=== PATIENT | male | born 1990 | race Hispanic/Latino ===

== ENCOUNTER 2018-02-01 07:11 | Inpatient (IN) | payer OTHER ==
[2018-02-01 07:19] VITALS: BMI 23.0
[2018-02-01] MEDS ORDERED: Oxycodone/Acetaminophen 5/325 mg Tab PO STA (07:53)
--- NOTE | 2018-02-01 08:18 | ED PDOC ---
Upper Extremity Pain/Injury Time Seen by Provider: 02/01/18 07:30 Chief Complaint (Nursing): Upper Extremity Problem/Injury Chief Complaint (Provider): Upper Extremity Problem/Injury History Per: Patient History/Exam Limitations: no limitations Onset/Duration Of Symptoms: Hrs (today morning) Current Symptoms Are (Timing): Still Present Additional Complaint(s): Jerson Aly Jr is a 28 year old male with no past medical history who presents to the emergency department complaining of having left shoulder pain since waking up this morning. Patient states he has not sustained any trauma or exertion and that he went to bed normally. He took an Alleve this morning with minimal relief and he denies any numbness or weakness. PMD: No provider Past Medical History Reviewed: Historical Data, Nursing Documentation, Vital Signs Vital Signs: Last Vital Signs Temp 98.1 F 02/01/18 07:29 Pulse 86 02/01/18 07:19 Resp 20 02/01/18 07:19 BP 121/84 02/01/18 07:19 Pulse Ox 100 02/01/18 07:19 - Medical History PMH: No Chronic Diseases Denies: Chronic Kidney Disease - Surgical History Surgical History: No Surg Hx - Family History Family History: States: Unknown Family Hx - Home Medications Home Medications: Ambulatory Orders Medication Instructions Recorded No Known Home Med 02/01/18 - Allergies Allergies/Adverse Reactions: Allergies Allergy/AdvReac Type Severity Reaction Status Date / Time No Known Allergies Allergy Verified 02/01/18 07:30 Review of Systems ROS Statement: Except As Marked, All Systems Reviewed And Found Negative Musculoskeletal: Positive for: Shoulder Pain (left shoulder) Neurological: Negative for: Weakness, Numbness Physical Exam - Reviewed Nursing Documentation Reviewed: Yes - Physical Exam Appears: Positive for: Non-toxic, In Acute Distress (moderate painful distress) Head Exam: Positive for: ATRAUMATIC, NORMOCEPHALIC Cardiovascular/Chest: Positive for: Regular Rate, Rhythm. Negative for: Murmur Respiratory: Positive for: Normal Breath Sounds. Negative for: Respiratory Distress Pulses-Radial (L): 2+ Pulses-Radial (R): 2+ Extremity: Positive for: Deformity (minimal deformity of the upper superior portion of the left shoulder; (-) elbow deformity), Other (Decreased ROM at shoulder and elbow secondary to pain) Neurologic/Psych: Positive for: Alert, Oriented (x3) - Laboratory Results Result Diagrams: 02/01/18 12:00 02/01/18 12:00 - ECG O2 Sat by Pulse Oximetry: 100 (RA) Pulse Ox Interpretation: Normal Medical Decision Making Medical Decision Making: Time: 07:51 Impression: Non traumatic shoulder and elbow pain Plan: --Toradol 15 mg IVP --Tylenol 1 tab PO --Elbow x-ray --Shoulder x-ray --Shoulder CT --Arm sling 09:39 Left shoulder X-ray FINDINGS: BONES: Cortical irregularities are appreciated at the inferior glenohumeral joint regions suspicious for fractures. No dislocation however. Acromioclavicular and glenohumeral joints are otherwise normal as well as local soft tissues. OTHER FINDINGS: None. IMPRESSION: Small chip or avulsion fractures are suspected inferior to the glenohumeral joint. No dislocation. Follow-up CT left shoulder or MRI may be utilized for added characterization. 09:41 Left elbow X-ray FINDINGS: BONES: No acute fracture or destructive bony lesion identified. JOINTS: Normal. No osteoarthritis. SOFT TISSUES: Normal. JOINT EFFUSION: None. OTHER FINDINGS: None IMPRESSION: Unremarkable radiographs of the left elbow. 10:[address] FINDINGS: There is a comminuted fracture of the left humeral head involving at least 4 components. There is marked impaction at the medial proximal metaphysis the left humerus with remainder of the left humeral head fracture nondisplaced. The labrum appears intact throughout. No subluxation or dislocation including the acromioclavicular joint which is unremarkable appearing. Hemarthrosis identified moderately. IMPRESSION: Comminuted left humeral head fracture with medial proximal metaphyseal impaction and otherwise no additional significant displacement appreciated. No dislocation. Acromioclavicular joint normal. Glenoid process intact including labrum. 11:[address] Ryder, admit for OR. Scribe Attestation: Documented by Lico Aleman, acting as a scribe for Kimberly Guardado MD. Provider Scribe Attestation: All medical record entries made by the Scribe were at my direction and personally dictated by me. I have reviewed the chart and agree that the record accurately reflects my personal performance of the history, physical exam, medical decision making, and the department course for this patient. I have also personally directed, reviewed, and agree with the discharge instructions and disposition. Disposition - Clinical Impression Clinical Impression: Comminuted left humeral fracture - Patient ED Disposition Is Patient to be Admitted: Yes - Disposition Disposition Time: 11:42 Condition: STABLE - Pt Status Changed To: Hospital Disposition Of: Inpatient - Admit Certification Admit to Inpatient:: After my assessment, the patient will require hospitalization for at least two midnights. This is because of the severity of symptoms shown, intensity of services needed, and/or the medical risk in this patient being treated as an outpatient. - POA Present On Arrival: None
[2018-02-01] MEDS ORDERED: diaZEpam 10 mg/2 ml Inj IVP STA (08:40)
--- NOTE | 2018-02-01 09:43 | RAD ---
Date of service: 02/01/2018 PROCEDURE: Radiographs of the Left Shoulder HISTORY: Pain COMPARISON: No prior. FINDINGS: BONES: Cortical irregularities are appreciated at the inferior glenohumeral joint regions suspicious for fractures. No dislocation however. Acromioclavicular and glenohumeral joints are otherwise normal as well as local soft tissues. OTHER FINDINGS: None. IMPRESSION: Small chip or avulsion fractures are suspected inferior to the glenohumeral joint. No dislocation. Follow-up CT left shoulder or MRI may be utilized for added characterization.
--- NOTE | 2018-02-01 09:44 | RAD ---
Date of service: 02/01/2018 PROCEDURE: Radiographs of the left elbow. HISTORY: Pain COMPARISON: No prior. FINDINGS: BONES: No acute fracture or destructive bony lesion identified. JOINTS: Normal. No osteoarthritis. SOFT TISSUES: Normal. JOINT EFFUSION: None. OTHER FINDINGS: None IMPRESSION: Unremarkable radiographs of the left elbow.
--- NOTE | 2018-02-01 10:38 | CT ---
Date of service: 02/01/2018 PROCEDURE: LEFT SHOULDER CT WITHOUT CONTRAST HISTORY: Abnormal XR L shoulder COMPARISON: Left shoulder radiographs 02/01/2018. TECHNIQUE: A volumetric CT acquisition through the left shoulder has been performed without intravenous contrast. Reformatted datasets provided multiple projections. Radiation dose:Total exam DLP = 455.15 mGy-cm. This CT exam was performed using one or more of the following dose reduction techniques: Automated exposure control, adjustment of the mA and/or kV according to patient size, and/or use of iterative reconstruction technique. FINDINGS: There is a comminuted fracture of the left humeral head involving at least 4 components. There is marked impaction at the medial proximal metaphysis the left humerus with remainder of the left humeral head fracture nondisplaced. The labrum appears intact throughout. No subluxation or dislocation including the acromioclavicular joint which is unremarkable appearing. Hemarthrosis identified moderately. IMPRESSION: Comminuted left humeral head fracture with medial proximal metaphyseal impaction and otherwise no additional significant displacement appreciated. No dislocation. Acromioclavicular joint normal. Glenoid process intact including labrum..
[2018-02-01] MEDS ORDERED: Morphine 4 MG/ML VIAL IV ONE (11:30)
[2018-02-01 12:14] LABS: BASO % 0.2 % (0.0-2.0); HEMOGLOBIN 14.4 g/dL (12.0-18.0); LYMPH # 0.8 K/uL (1.0-4.3); LYMPH % 5.3 % (20.0-40.0); MEAN CELL VOLUME 89.7 fl (80.0-94.0); MEAN CORPUSCULAR HEMOGLOBIN 29.9 pg (27.0-31.0); MEAN CORPUSCULAR HGB CONC 33.4 g/dL (33.0-37.0); MEAN PLATELET VOLUME 7.8 fl (7.2-11.7); MONO # 0.9 K/uL (0.0-0.8); MONO % 6.3 % (0.0-10.0); NEUT # 13.1 K/uL (1.8-7.0); NEUT % 88.2 % (50.0-75.0); PLATELET COUNT 273 K/uL (130-400); RBC 4.82 Mil/uL (4.40-5.90); RED CELL DISTRIBUTION WIDTH 12.1 % (11.5-14.5); WHITE BLOOD COUNT 14.8 K/uL (4.8-10.8)
[2018-02-01 12:17] LABS: PROTHROMBIN TIME 10.9 Seconds (9.8-13.1)
[2018-02-01 12:19] LABS: PARTIAL THROMBOPLASTIN TIME 30.3 Seconds (25.6-37.1)
--- NOTE | 2018-02-01 12:22 | RAD ---
Date of service: 02/01/2018 PROCEDURE: CHEST RADIOGRAPH, 1 VIEW HISTORY: Pre-op COMPARISON: None available. FINDINGS: LUNGS: Clear. PLEURA: No pneumothorax or pleural fluid seen. CARDIOVASCULAR: No aortic atherosclerotic calcification present. Normal. OSSEOUS STRUCTURES: No significant abnormalities. VISUALIZED UPPER ABDOMEN: Normal. OTHER FINDINGS: None. IMPRESSION: No active disease.
[2018-02-01 12:25] LABS: ALB/GLOB RATIO 1.7 (1.0-2.1); ALBUMIN 4.4 g/dL (3.5-5.0); ALT/SGPT 36 U/L (21-72); AST/SGOT 83 U/L (17-59); BLOOD UREA NITROGEN 13 mg/dl (9-20); CALCIUM 9.3 mg/dL (8.4-10.2); GFR NON-AFRICAN AMERICAN > 60
[2018-02-01 13:20] LABS: BANDS 2 % (0-2); LYMPHOCYTE 6 % (20-50); MONOCYTE 4 % (0-10); NEUTROPHIL 88 % (42-75); PLATELET ESTIMATE NORMAL (NORMAL); TOTAL CELLS COUNTED 100
--- NOTE | 2018-02-01 16:18 | CARD ---
APPROVED REPORT Date of service: 02/01/2018 EKG Measurement Heart [id number] <Conclusion> Normal sinus rhythm Normal ECG
[2018-02-01] MEDS: Oxycodone/Acetaminophen 5/325 mg Tab PO PRN ×2 (16:29→21:55)
--- NOTE | 2018-02-01 17:18 | CP.PCM.HP ---
History of Present Illness - History of Present Illness History of Present Illness: 28 YR OLD MALE ADMITTED WITH SUDDEN ONSET OF NON-TRAUMATIC L SHOULDER PAIN TODAY.HE WAS NOTED TO HAVE L HUMERAL HEAD FRACTURE ON XRAY AND CT SCAN. UNREMARKABLE PAST MEDICAL HISTORY FAMILY HX IS NON-CONTRIBUTARY Present on Admission - Present on Admission Any Indicators Present on Admission: No Past Patient History - Past Medical History & Family History Past Medical History?: No - Past Social History Smoking Status: Former Smoker - CARDIAC Hx Cardiac Disorders: No - PULMONARY Hx Respiratory Disorders: No - NEUROLOGICAL Hx Neurological Disorder: No - HEENT Hx HEENT Problems: No - RENAL Hx Chronic Kidney Disease: No - ENDOCRINE/METABOLIC Hx Endocrine Disorders: No - HEMATOLOGICAL/ONCOLOGICAL Hx Blood Disorders: No - INTEGUMENTARY Hx Dermatological Problems: No - MUSCULOSKELETAL/RHEUMATOLOGICAL Hx Falls: No - GASTROINTESTINAL Hx Gastrointestinal Disorders: No - GENITOURINARY/GYNECOLOGICAL Hx Genitourinary Disorders: No - PSYCHIATRIC Hx Psychophysiologic Disorder: No Hx Substance Use: No - SURGICAL HISTORY Hx Surgeries: Yes Other/Comment: Maxilo Facial Surgery - ANESTHESIA Hx Anesthesia: Yes Hx Anesthesia Reactions: No Hx Malignant Hyperthermia: No Meds Allergies/Adverse Reactions: Allergies Allergy/AdvReac Type Severity Reaction Status Date / Time No Known Allergies Allergy Verified 02/01/18 07:30 Physical Exam - Constitutional Appears: In Acute Distress - Head Exam Head Exam: ATRAUMATIC, NORMAL INSPECTION, NORMOCEPHALIC - Eye Exam Eye Exam: EOMI, Normal appearance, PERRL Pupil Exam: NORMAL ACCOMODATION, PERRL - ENT Exam ENT Exam: Mucous Membranes Moist, Normal Exam - Neck Exam Neck exam: Positive for: Normal Inspection - Respiratory Exam Respiratory Exam: Clear to Auscultation Bilateral, NORMAL BREATHING PATTERN - Cardiovascular Exam Cardiovascular Exam: REGULAR RHYTHM - GI/Abdominal Exam GI & Abdominal Exam: Normal Bowel Sounds, Soft. absent: Tenderness - Rectal Exam Rectal Exam: NORMAL INSPECTION - Extremities Exam Extremities exam: Positive for: normal inspection, tenderness Additional comments: L ARM IN A SPLINT - Back Exam Back exam: NORMAL INSPECTION - Neurological Exam Neurological exam: Alert, CN II-XII Intact, Normal Gait, Oriented x3, Reflexes Normal - Psychiatric Exam Psychiatric exam: Normal Affect, Normal Mood - Skin Skin Exam: Dry, Intact, Normal Color, Warm Results - Vital Signs Recent Vital Signs: Last Vital Signs Temp 98.4 F 02/01/18 16:12 Pulse 93 H 02/01/18 16:12 Resp 20 02/01/18 16:12 BP 136/76 02/01/18 16:12 Pulse Ox 98 02/01/18 16:12 - Labs Result Diagrams: 02/01/18 12:00 02/01/18 12:00 Labs: Laboratory Results - last 24 hr 02/01/18 02/01/18 02/01/18 12:00 12:00 12:00 WBC 14.8 H RBC 4.82 Hgb 14.4 Hct 43.2 MCV 89.7 MCH 29.9 MCHC 33.4 RDW 12.1 Plt Count 273 MPV 7.8 Neut % (Auto) 88.2 H Lymph % (Auto) 5.3 L Centre % (Auto) 6.3 Eos % (Auto) 0.0 Baso % (Auto) 0.2 Neut # (Auto) 13.1 H Lymph # (Auto) 0.8 L Centre # (Auto) 0.9 H Eos # (Auto) 0.0 Baso # (Auto) 0.0 Neutrophils % (Manual) 88 H Band Neutrophils % 2 Lymphocytes % (Manual) 6 L Monocytes % (Manual) 4 Platelet Estimate Normal RBC Morphology Normal PT 10.9 INR 1.0 APTT 30.3 Sodium 138 Potassium 3.6 Chloride 103 Carbon Dioxide 24 Anion Gap 15 BUN 13 Creatinine 0.9 Est GFR ( Amer) > 60 Est GFR (Non-Af Amer) > 60 Random Glucose 115 H Calcium 9.3 Total Bilirubin 1.1 AST 83 H ALT 36 Alkaline Phosphatase 54 Total Protein 6.9 Albumin 4.4 Globulin 2.5 Albumin/Globulin Ratio 1.7 Blood Type Blood Type Confirm Antibody Screen BBK History Checked 02/01/18 02/01/18 12:00 12:28 WBC RBC Hgb Hct MCV MCH MCHC RDW Plt Count MPV Neut % (Auto) Lymph % (Auto) Centre % (Auto) Eos % (Auto) Baso % (Auto) Neut # (Auto) Lymph # (Auto) Centre # (Auto) Eos # (Auto) Baso # (Auto) Neutrophils % (Manual) Band Neutrophils % Lymphocytes % (Manual) Monocytes % (Manual) Platelet Estimate RBC Morphology PT INR APTT Sodium Potassium Chloride Carbon Dioxide Anion Gap BUN Creatinine Est GFR ( Amer) Est GFR (Non-Af Amer) Random Glucose Calcium Total Bilirubin AST ALT Alkaline Phosphatase Total Protein Albumin Globulin Albumin/Globulin Ratio Blood Type A POSITIVE Blood Type Confirm A POSITIVE Antibody Screen Negative BBK History Checked No verified bt Assessment & Plan - Assessment and Plan (Free Text) Assessment: PATHOLOGIC L HUMERAL FRACTURE Plan: MEDICALLY CLEARED FOR SURGERY IN AM - Date & Time Date: 02/01/18 Time: 17:20
--- NOTE | 2018-02-02 00:09 | CON ---
DATE: 02/01/2018 CHIEF COMPLAINT: Left shoulder fracture dislocation. HISTORY OF PRESENT ILLNESS: The patient is a 28-year-old male who is right-hand dominant, presents to the emergency room with excruciating left shoulder pain. The patient reports that he woke up with the pain. Denies any trauma or fall. The patient reports the day prior to the incident he had full range of motion of his left shoulder. Currently, the patient's symptoms include very limited and painful left shoulder motion. He denies any paresthesias or motor weakness. Denies any pain in any extremity or joint. Neurovascularly, no other symptoms. Not in any acute distress. PAST MEDICAL HISTORY: None. ALLERGIES: NO KNOWN DRUG ALLERGIES. PHYSICAL EXAMINATION: EXTREMITIES: Examination of the patient's left shoulder reveals swelling and minimal ecchymosis. Limited range of motion in all planes secondary to pain. Medial, ulnar, radial, and axillary nerves intact distally. 2+ radial pulses. IMAGING: CT scan and x-ray of the patient's left shoulder are showing a posterior fracture dislocation of femoral head with lesser tuberosity displacement. ASSESSMENT: A 28-year-old male with an acute left shoulder fracture, posterior fracture dislocation. TREATMENT: I had a detailed discussion with the patient reviewing the history, physical exam, and imaging findings. I presented with different treatment options. At this time I have recommended with the close versus open reduction and fracture fixation and all indicated procedures. The patient fully understands the risks and benefits. The patient will be taken to the operating room for acute fracture fixation. Marbin Ryder MD
[2018-02-02 07:51] VITALS: BP 132/80; PULSE 71; RESP 16; TEMP 98.3
[2018-02-02] MEDS ORDERED: Dextrose 5%/0.45% NS 1,000 ML IV SCH (09:15)
--- NOTE | 2018-02-02 09:24 | CP.PCM.PN ---
Subjective - Date & Time of Evaluation Date of Evaluation: 02/02/18 Time of Evaluation: 09:29 - Subjective Subjective: c/o pain in l shoulder has received iv dilaudid several times in the past 24 hrs mother at bedside and is considering other ortho options depending on mri results pt is tentatively scheduled for ortho surgery this afternoon Objective - Vital Signs/Intake and Output Vital Signs (last 24 hours): Temp Pulse Resp BP Pulse Ox 98.3 F 71 16 132/80 97 02/02/18 07:50 02/02/18 07:50 02/02/18 07:50 02/02/18 07:50 02/02/18 07:50 - Medications Medications: Current Medications Hydromorphone HCl (Dilaudid) 2 mg IVP Q4 PRN PRN Reason: Pain, moderate (4-7) Last Admin: 02/02/18 06:23 Dose: 2 mg Dextrose/Sodium Chloride (Dextrose 5%/0.45% Ns 1000 Ml) 1,000 mls @ 80 mls/hr IV .[id number] Stop: 02/03/18 09:03 Last Admin: 02/02/18 09:19 Dose: 80 mls/hr Ondansetron HCl (Zofran Inj) 4 mg IVP Q4 PRN PRN Reason: Nausea/Vomiting Last Admin: 02/01/18 21:08 Dose: 4 mg Oxycodone/Acetaminophen (Percocet 5/325 Mg Tab) 1 tab PO Q4 PRN PRN Reason: Pain, Mild (1-3) Stop: 02/04/18 13:31 Last Admin: 02/01/18 21:55 Dose: 1 tab - Labs Labs: 02/01/18 12:00 02/01/18 12:00 PT 10.9 Seconds (9.8-13.1) 02/01/18 12:00 INR 1.0 02/01/18 12:00 APTT 30.3 Seconds (25.6-37.1) 02/01/18 12:00 - Constitutional Appears: In Acute Distress - Head Exam Head Exam: ATRAUMATIC, NORMAL INSPECTION, NORMOCEPHALIC - Eye Exam Eye Exam: EOMI, Normal appearance, PERRL Pupil Exam: NORMAL ACCOMODATION, PERRL - ENT Exam ENT Exam: Mucous Membranes Moist, Normal Exam - Neck Exam Neck Exam: Full ROM, Normal Inspection. absent: Lymphadenopathy - Respiratory Exam Respiratory Exam: Clear to Ausculation Bilateral, NORMAL BREATHING PATTERN - Cardiovascular Exam Cardiovascular Exam: REGULAR RHYTHM, +S1, +S2. absent: Murmur - GI/Abdominal Exam GI & Abdominal Exam: Soft, Normal Bowel Sounds. absent: Tenderness - Rectal Exam Rectal Exam: NORMAL INSPECTION - Extremities Exam Extremities Exam: Full ROM, Normal Capillary Refill, Normal Inspection, Tenderness. absent: Joint Swelling, Pedal Edema - Back Exam Back Exam: NORMAL INSPECTION - Neurological Exam Neurological Exam: Alert, Awake, CN II-XII Intact, Normal Gait, Oriented x3 - Psychiatric Exam Psychiatric exam: Normal Affect, Normal Mood - Skin Skin Exam: Dry, Intact, Normal Color, Warm Assessment and Plan - Assessment and Plan (Free Text) Assessment: pathologic fracture l shoulder Plan: mother wants to sign pt out and take him to her private orthopedists she understands the risks and benefits of signing out ama
--- NOTE | 2018-02-02 10:31 | MRI ---
MRI left shoulder HISTORY: Shoulder fracture dislocation. COMPARISON: CT scan dated 02/01/2018 Technique: Multi-echo multiplanar sequences were performed through the left shoulder without the use of intravenous contrast. Findings: Again identified is a markedly comminuted, distracted, and dislocated fracture deformity of the humeral head and proximal humerus with posterior dislocation of the humeral head in relationship to the bony glenoid. There is severe impaction of the anteromedial proximal humeral head. In addition, there is a prominent comminuted fracture deformity of the proximal humeral head with multiple fracture lines extending superior to inferiorly to the anterior, medial, and posterior cortices as demonstrated on series 3, image 9. In addition, more inferiorly there appears to be a displaced and distracted fracture fragment which appears somewhat rotated likely involving the lesser tuberosity measuring up to 2 centimeters best seen on series 6 image 12 and series 3, image 13. The humeral head is dislocated posterior superiorly and lodged against the posterior aspect of the bony glenoid. Bony glenoid itself appears preserved. Evaluation of the glenoid labrum demonstrates some mild increased signal noted at the posterior inferior labrum which may represent a small nondisplaced partial tear. In addition, there is some fraying with increased signal noted at the level of posterior superior labrum as demonstrated on series 4 and 5 images 13 through 15 which may also represent some degenerative fraying and/or mild degenerative partial tearing. Large glenohumeral joint effusion. Prominent edema seen within the visualized adjacent musculature including the supra and infraspinatus muscle bellies as well as the deltoid muscle belly. Intramuscular partial tearing of the infraspinatus muscle belly noted. Some intramuscular partial tearing at the inferior muscle belly of the subscapularis muscle. Supraspinatus tendon appears grossly preserved. The tendon inserts onto a comminuted fracture fragment of the greater tuberosity. Clinical correlation. Mild fraying with increased signal seen at the distal insertion of the infraspinatus tendon which inserts on 2 distinct fracture fragments of the greater tuberosity of the proximal humerus. No gross full-thickness defect, tendon retraction, or muscle atrophy. Teres minor tendon is preserved. Marked fraying with increased signal seen within the distal subscapularis tendon which appears to insert onto a distracted and displaced fracture deformity of the lesser tuberosity. Based on these images, there appears to be partial tearing of the subscapularis tendon distally. Postreduction MRI may be helpful to better evaluate the distal tendon. Extensive intramuscular edema of the subscapularis muscle belly suggestive for intramuscular partial tearing with hemorrhage. Prominent fluid distension of the biceps tendon sheath in the bicipital groove. Mild increased signal within the proximal attachment of the biceps tendon suggestive for a mild tendinopathy. Acromioclavicular joint space appears grossly preserved. Impression: 1. Again identified is a markedly comminuted, distracted, and dislocated fracture deformity of the humeral head and proximal humerus with posterior dislocation of the humeral head in relationship to the bony glenoid. There is severe impaction of the anteromedial proximal humeral head. In addition, there is a prominent comminuted fracture deformity of the proximal humeral head with multiple fracture lines extending superior to inferiorly to the anterior, medial, and posterior cortices as demonstrated on series 3, image 9. In addition, more inferiorly there appears to be a displaced and distracted fracture fragment which appears somewhat rotated likely involving the lesser tuberosity measuring up to 2 centimeters best seen on series 6 image 12 and series 3, image 13. The humeral head is dislocated posterior superiorly and lodged against the posterior aspect of the bony glenoid. Bony glenoid itself appears preserved. 2. Evaluation of the glenoid labrum demonstrates some mild increased signal noted at the posterior inferior labrum which may represent a small nondisplaced partial tear. In addition, there is some fraying with increased signal noted at the level of posterior superior labrum as demonstrated on series 4 and 5 images 13 through 15 which may also represent some degenerative fraying and/or mild degenerative partial tearing. 3. Large glenohumeral joint effusion. 4. Prominent edema seen within the visualized adjacent musculature including the supra and infraspinatus muscle bellies as well as the deltoid muscle belly. Intramuscular partial tearing of the infraspinatus muscle belly noted. Some intramuscular partial tearing at the inferior muscle belly of the subscapularis muscle. 5. Supraspinatus tendon appears grossly preserved. The tendon inserts onto a comminuted fracture fragment of the greater tuberosity. Clinical correlation. 6. Mild fraying with increased signal seen at the distal insertion of the infraspinatus tendon which inserts on 2 distinct fracture fragments of the greater tuberosity of the proximal humerus. No gross full-thickness defect, tendon retraction, or muscle atrophy. 7. Marked fraying with increased signal seen within the distal subscapularis tendon which appears to insert onto a distracted and displaced fracture deformity of the lesser tuberosity. Based on these images, there appears to be partial tearing of the subscapularis tendon distally. Postreduction MRI may be helpful to better evaluate the distal tendon. Extensive intramuscular edema of the subscapularis muscle belly suggestive for intramuscular partial tearing with hemorrhage. 8. Prominent fluid distension of the biceps tendon sheath in the bicipital groove. Mild increased signal within the proximal attachment of the biceps tendon suggestive for a mild tendinopathy.
[2018-02-03 09:43] VITALS: O2SAT 100
--- NOTE | 2018-02-03 10:34 | CP.PCM.DIS ---
Provider - Provider Date of Admission: 02/01/18 11:42 Attending physician: Rory Rodriguez MD Time Spent in preparation of Discharge (in minutes): 30 Diagnosis - Discharge Diagnosis (1) Comminuted left humeral fracture Status: Acute Hospital Course - Lab Results Lab Results: Most Recent Lab Values WBC 14.8 K/uL (4.8-10.8) H 02/01/18 12:00 RBC 4.82 Mil/uL (4.40-5.90) 02/01/18 12:00 Hgb 14.4 g/dL (12.0-18.0) 02/01/18 12:00 Hct 43.2 % (35.0-51.0) 02/01/18 12:00 MCV 89.7 fl (80.0-94.0) 02/01/18 12:00 MCH 29.9 pg (27.0-31.0) 02/01/18 12:00 MCHC 33.4 g/dL (33.0-37.0) 02/01/18 12:00 RDW 12.1 % (11.5-14.5) 02/01/18 12:00 Plt Count 273 K/uL (130-400) 02/01/18 12:00 MPV 7.8 fl (7.2-11.7) 02/01/18 12:00 Neut % (Auto) 88.2 % (50.0-75.0) H 02/01/18 12:00 Lymph % (Auto) 5.3 % (20.0-40.0) L 02/01/18 12:00 Imperial % (Auto) 6.3 % (0.0-10.0) 02/01/18 12:00 Eos % (Auto) 0.0 % (0.0-4.0) 02/01/18 12:00 Baso % (Auto) 0.2 % (0.0-2.0) 02/01/18 12:00 Neut # (Auto) 13.1 K/uL (1.8-7.0) H 02/01/18 12:00 Lymph # (Auto) 0.8 K/uL (1.0-4.3) L 02/01/18 12:00 Imperial # (Auto) 0.9 K/uL (0.0-0.8) H 02/01/18 12:00 Eos # (Auto) 0.0 K/uL (0.0-0.7) 02/01/18 12:00 Baso # (Auto) 0.0 K/uL (0.0-0.2) 02/01/18 12:00 Neutrophils % (Manual) 88 % (42-75) H 02/01/18 12:00 Band Neutrophils % 2 % (0-2) 02/01/18 12:00 Lymphocytes % (Manual) 6 % (20-50) L 02/01/18 12:00 Monocytes % (Manual) 4 % (0-10) 02/01/18 12:00 Platelet Estimate Normal (NORMAL) 02/01/18 12:00 RBC Morphology Normal (NORMAL) 02/01/18 12:00 PT 10.9 Seconds (9.8-13.1) 02/01/18 12:00 INR 1.0 02/01/18 12:00 APTT 30.3 Seconds (25.6-37.1) 02/01/18 12:00 Sodium 138 mmol/l (132-148) 02/01/18 12:00 Potassium 3.6 MMOL/L (3.6-5.0) 02/01/18 12:00 Chloride 103 mmol/L (98-107) 02/01/18 12:00 Carbon Dioxide 24 mmol/L (22-30) 02/01/18 12:00 Anion Gap 15 (10-20) 02/01/18 12:00 BUN 13 mg/dl (9-20) 02/01/18 12:00 Creatinine 0.9 mg/dl (0.8-1.5) 02/01/18 12:00 Est GFR ( Amer) > 60 02/01/18 12:00 Est GFR (Non-Af Amer) > 60 02/01/18 12:00 Random Glucose 115 mg/dL (75-110) H 02/01/18 12:00 Calcium 9.3 mg/dL (8.4-10.2) 02/01/18 12:00 Total Bilirubin 1.1 mg/dl (0.2-1.3) 02/01/18 12:00 AST 83 U/L (17-59) H 02/01/18 12:00 ALT 36 U/L (21-72) 02/01/18 12:00 Alkaline Phosphatase 54 U/L (38-126) 02/01/18 12:00 Total Protein 6.9 G/DL (6.3-8.2) 02/01/18 12:00 Albumin 4.4 g/dL (3.5-5.0) 02/01/18 12:00 Globulin 2.5 gm/dL (2.2-3.9) 02/01/18 12:00 Albumin/Globulin Ratio 1.7 (1.0-2.1) 02/01/18 12:00 Blood Type A POSITIVE 02/01/18 12:00 Blood Type Confirm A POSITIVE 02/01/18 12:28 Antibody Screen Negative 02/01/18 12:00 BBK History Checked No verified bt 02/01/18 12:00 - Hospital Course Hospital Course: L [facility] [employer] Discharge Exam - Head Exam Head Exam: ATRAUMATIC, NORMOCEPHALIC - Eye Exam Eye Exam: EOMI, Normal appearance, PERRL Pupil Exam: NORMAL ACCOMODATION, PERRL - GI/Abdominal Exam GI & Abdominal Exam: Normal Bowel Sounds - Rectal Exam Rectal Exam: NORMAL INSPECTION - Extremities Exam Extremities exam: tenderness Additional comments: L SHOULDER IN A SLING - Neurological Exam Neurological exam: Alert, CN II-XII Intact, Normal Gait, Oriented x3, Reflexes Normal - Psychiatric Exam Psychiatric exam: Normal Affect, Normal Mood - Skin Skin Exam: Dry, Intact, Normal Color, Warm Discharge Plan - Follow Up Plan Condition: STABLE Disposition: AGAINST MEDICAL ADVICE Additional Instructions: PT SIGNED OUT AMA
== END 2018-02-02 10:19 | disposition left against medical advice (07) | DRG 544 ==
LOC: H.ER 07:11 → H.ERHOLD 11:42 → H.PEDS 12:41
PROVIDERS: ADMIT Internal Medicine Pulmonary Disease; ATTEND Internal Medicine Pulmonary Disease
DX: M84.412A Pathological fracture, left shoulder, initial encounter for fracture (principal); Z87.891 Personal history of nicotine dependence